=== PATIENT | male | born 1955 | race Caucasian/White ===

== ENCOUNTER 2019-06-18 18:02 | Emergency (ER) | payer MEDICAID ==
[~2019-06-18] VITALS: Ht 182.9 cm; Wt 98.0 kg
[2019-06-18] MEDS ORDERED: KETOROLAC 60MG/2ML VIAL IM STA (23:07)
[2019-06-18] MEDS ORDERED: LORAZEPAM 1MG TABLET PO ONE (23:15)
[2019-06-19] MEDS ORDERED: CLONAZEPAM 1MG TABLET PO ONE (16:30)
[2019-06-19] MEDS ORDERED: CLONAZEPAM 1MG TABLET PO NR (21:45)
[2019-06-19 23:13] LABS: BASOPHILS % 0.8 % (0.0-2.0); EOSINOPHILS % 1.8 % (0.0-5.0); HEMATOCRIT. 50.1 % (42.0-52.0); HEMOGLOBIN. 17.4 g/dL (14.0-18.0); LYMPHOCYTES % 21.2 % (20.0-50.0); MEAN CORPUSCULAR HEMOGLOBIN 32.4 pg (28.0-32.0); MEAN CORPUSCULAR VOLUME 93.2 fL (80.0-94.0); MEAN PLATELET VOLUME 9.1 fl (7.4-10.4); MONOCYTES % 7.7 % (2.0-8.0); NEUTROPHILS % 68.5 % (40.0-76.0); PLATELET 221 x1000/uL (130-400); RED BLOOD CELL COUNT 5.38 mill/uL (4.7-6.1); RED CELL DISTRIBUTION WIDTH 13.4 % (11.6-14.6)
[2019-06-19 23:19] LABS: CHLORIDE 107 mEq/L (98-107)
[2019-06-20 12:00] VITALS: BP 128/77
== END 2019-06-20 12:48 | disposition home or self-care (01) ==
LOC: ER 18:02
DX: M25.561 Pain in right knee (principal); F41.9 Anxiety disorder, unspecified; Z96.659 Presence of unspecified artificial knee joint
CPT/HCPCS: 36415; 80053; 85025; 96372; 99285; J1885